=== PATIENT | female | born 1980 ===

== ENCOUNTER → 2016-10-24 | Outpatient (CLI) | payer MEDICAID | LOC: BRMIMAGING 13:37 | PROVIDERS: ATTEND Registered Nurse | DX: R10.10 Upper abdominal pain, unspecified (principal) | CPT/HCPCS: 71020-PO ==

== ENCOUNTER → 2016-10-25 | Outpatient (CLI) | payer MEDICAID | LOC: BRMIMAGING 11:12 | PROVIDERS: ATTEND Registered Nurse | DX: R10.10 Upper abdominal pain, unspecified (principal) | CPT/HCPCS: 76700-PO ==